=== PATIENT | female | born 1970 | race African-American/Black ===

== ENCOUNTER 2025-04-13 13:06 | Emergency (ER) | payer MEDICARE, MEDICAID ==
[~2025-04-13] VITALS: Ht 165.1 cm; Wt 86.0 kg
[2025-04-13 13:20] VITALS: O2SAT 100
[2025-04-13 15:07] LABS: BASOPHILS % 0.5 % (0.0-2.0); EOSINOPHILS % 1.6 % (0.0-5.0); HEMATOCRIT. 39.0 % (36.0-48.0); HEMOGLOBIN. 12.3 g/dL (12.0-16.0); LYMPHOCYTES % 35.0 % (20.0-50.0); MEAN PLATELET VOLUME 12.6 fl (7.4-10.4); MONOCYTES % 6.7 % (2.0-8.0); NEUTROPHILS % 56.2 % (40.0-76.0); PLATELET 134 x1000/uL (130-400); RED BLOOD CELL COUNT 5.39 mill/uL (4.2-5.4); RED CELL DISTRIBUTION WIDTH 19.2 % (11.6-14.6)
[2025-04-13 15:21] LABS: CREATININE 0.7 mg/dL (0.6-1.0); UREA NITROGEN BLOOD 8 mg/dL (9-23)
[2025-04-13 15:23] LABS: ASPARTATE AMINOTRANSFERASE 21 IU/L (<34); BILIRUBIN TOTAL 0.3 mg/dL (0.1-1.0); PROTEIN TOTAL 8.0 g/dL (6.0-8.3)
[2025-04-13 15:25] LABS: INR 1.0
[2025-04-13] MEDS ORDERED: GLYC1MED47 TP (15:47)
[2025-04-13] MEDS: LOSARTAN 50 MG TABLET PO ONE (15:52)
[2025-04-13 15:55] VITALS: BP 198/105; PULSE 80; RESP 18; TEMP 36.7; O2SAT 100
== END 2025-04-13 15:56 | disposition home or self-care (01) ==
LOC: ER 13:06
DX: K64.8 Other hemorrhoids (principal); I10 Essential (primary) hypertension; D72.819 Decreased white blood cell count, unspecified; E11.9 Type 2 diabetes mellitus without complications; E87.6 Hypokalemia; Z79.899 Other long term (current) drug therapy; Z88.0 Allergy status to penicillin
CPT/HCPCS: 36415; 80053; 85025; 86850; 86900; 99284

== ENCOUNTER 2025-06-20 10:37 | Emergency (ER) | payer MEDICARE, MEDICAID ==
[~2025-06-20] VITALS: Ht 167.6 cm; Wt 82.0 kg
[~2025-06-20 10:37] MED LIST: GLYC1MED47 TP
[2025-06-20 10:43] VITALS: TEMP 36.9; O2SAT 99
[2025-06-20] MEDS ORDERED: DEXAMETHASONE 1 MG/ML ORAL SYR PO ONE (11:30)
[2025-06-20] MEDS: FAMOTIDINE 20MG TABLET PO ONE (11:44)
[2025-06-20] MEDS: DEXAMETHASONE 4MG TABLET PO SCH (11:45)
[2025-06-20 12:04] LABS: BASOPHILS % 0.5 % (0.0-2.0); EOSINOPHILS % 1.9 % (0.0-5.0); HEMATOCRIT. 39.2 % (36.0-48.0); HEMOGLOBIN. 12.5 g/dL (12.0-16.0); LYMPHOCYTES % 41.1 % (20.0-50.0); MEAN PLATELET VOLUME 12.0 fl (7.4-10.4); MONOCYTES % 7.7 % (2.0-8.0); NEUTROPHILS % 48.8 % (40.0-76.0); PLATELET 109 x1000/uL (130-400); RED BLOOD CELL COUNT 5.20 mill/uL (4.2-5.4); RED CELL DISTRIBUTION WIDTH 16.3 % (11.6-14.6)
[2025-06-20 12:17] LABS: CREATININE 0.8 mg/dL (0.6-1.0)
[2025-06-20 12:18] LABS: PROTEIN TOTAL 7.7 g/dL (6.0-8.3); TROPONIN I HIGH SENSITIVITY < 4 ng/L (3.0-34); UREA NITROGEN BLOOD 6 mg/dL (9-23)
[2025-06-20 12:19] LABS: ASPARTATE AMINOTRANSFERASE 23 IU/L (<34)
[2025-06-20 12:20] LABS: BILIRUBIN DIRECT < 0.1 mg/dL (<=3.0); BILIRUBIN TOTAL 0.3 mg/dL (0.1-1.0)
[2025-06-20] MEDS ORDERED: EPIN0.3P3 IM (14:08)
[2025-06-20] MEDS ORDERED: FAMO20TA8 MT (14:08)
[2025-06-20 14:21] VITALS: BP 176/93; PULSE 78; RESP 18; O2SAT 100
== END 2025-06-20 15:14 | disposition home or self-care (01) ==
LOC: ER 10:37
DX: R06.00 Dyspnea, unspecified (principal); D72.819 Decreased white blood cell count, unspecified; D69.6 Thrombocytopenia, unspecified; I10 Essential (primary) hypertension; E11.9 Type 2 diabetes mellitus without complications; Z79.899 Other long term (current) drug therapy; Z88.0 Allergy status to penicillin
CPT/HCPCS: 99285; 71045; 80076; 80048; 85025; 84484; 36415; 70360; 93005; J8540